=== PATIENT | male | born 1985 | race Caucasian/White ===

== ENCOUNTER 2017-07-10 09:35 | Emergency (ER) | payer OTHER ==
[2017-07-10] MEDS ORDERED: NORCO 5/325 MG PO ONE (09:50)
--- NOTE | 2017-07-10 09:53 | ERPHSYRPT ---
- History of Present Illness Time Seen by Provider: 07/10/17 09:46 Source: patient, family Physician History: CC: fall Hx: 31 y/o patient moved here from [place]. He slipped this AM unloading the car. He has pain in left hand and wrist after injury. No N/T/W. No neck or back pain. No head injury. No other injuries. Pain is severe. He has HTN but does not take his medication. He is allergic to naproxen. Occurred: just prior to arrival Extremities Pain Location: wrist: left Allergies/Adverse Reactions: naproxen [From Naprosyn] Allergy (Verified 07/10/17 09:55) - Review of Systems Constitutional: No Symptoms Respiratory: No Dyspnea Cardiac: No Chest Pain, No Syncope Abdominal/Gastrointestinal: No Abdominal Pain, No Vomiting Musculoskeletal: Injury (left wrist/hand), No Back Pain, No Neck Pain Neurological: No Focal Weakness, No Parasthesia All Other Systems: Reviewed and Negative - Past Medical History Pertinent Past Medical History: Yes (HTN) - Social History Patient Lives Alone: No - Nursing Vital Signs Nursing Vital Signs: Initial Vital Signs Temperature 97.9 F 07/10/17 09:48 Pulse Rate 67 07/10/17 09:48 Respiratory Rate 18 07/10/17 09:48 Blood Pressure 178/91 07/10/17 09:48 O2 Sat by Pulse Oximetry 95 07/10/17 09:48 Pain Scale Pain Intensity 7 - Physical Exam General Appearance: alert, obese Eyes, Ears, Nose, Throat Exam: normal ENT inspection, moist mucous membranes Neck Exam: normal inspection, non-tender, supple Cardiovascular/Respiratory Exam: normal breath sounds, regular rate/rhythm Abdominal Exam: non-tender, soft Shoulder Exam: non-tender, no evidence of injury Elbow/Forearm Exam: non-tender, no evidence of injury Wrist Exam: bone tenderness, pain, No deformity, No ecchymosis Hand Exam: bone tenderness, No deformity, No ecchymosis Neuro/Tendon Exam: normal sensation, normal motor functions Mental Status Exam: alert, oriented x 3, cooperative Skin Exam: warm, dry, No rash - Course Nursing assessment & vital signs reviewed: Yes - Radiology Exams left hand/wrist X-ray Interpretation: Teleradiologist Report, Negative, No Fracture Ordered Tests: Active Orders 24 hr Category Date Time Status Cold Application STAT Care 07/10/17 09:50 Active Splint STAT Care 07/10/17 10:26 Active HAND (MINIMUM 3 VIEWS) Stat Exams 07/10/17 09:50 Completed WRIST (MIN 3 VIEWS) Stat Exams 07/10/17 09:50 Completed Medication Summary Discontinued Medications Generic Name Dose Route Start Last Admin Trade Name Freq PRN Reason Stop Dose Admin Hydrocodone Bitart/Acetaminophen 2 tab 07/10/17 09:50 07/10/17 10:03 [place] 5/325 Mg PO 07/10/17 09:51 2 tab STAT ONE Administration Hydrocodone Bitart/Acetaminophen Confirm 07/10/17 09:57 [place] 5/325 Mg Administered 07/10/17 09:58 Dose 2 tab .ROUTE .[employer] ONE - Progress Progress Note: 07/10/17 10:31 Explained xray. Advised splint and follow up. He can take ibuprofen for pain in past without problems. Counseled pt/family regarding: diagnosis, need for follow-up, rad results - Departure Time of Disposition: 10:31 Departure Disposition: Home Clinical Impression: Left wrist sprain Qualifiers: Encounter type: initial encounter Qualified Code(s): S63.502A - Unspecified sprain of left wrist, initial encounter Condition: Stable Critical Care Time: No Referrals: DOCTOR,NO FAMILY [NON-STAFF PHY W/O PRIVILEGES] - Instructions: Wrist Sprain Additional Instructions: Rx ibuprofen. Splint. Follow up with family doctor if not better in one week. Light duty work. SPRAINS/STRAINS/CONTUSIONS 1. Rest the affected area as much as possible for the next few days. 2. Apply ice to the affected area for 20-30 minutes at a time, several times a day. 3. If you receive an elastic wrap, wear it only while awake for comfort and support. Re-wrap the elastic wrap if it feels too tight or too loose. 4. If swelling is present, elevate the affected part above the level of the heart for at least 2 to 3 days. 5. Use splints, slings, or crutches as instructed. 6. Watch for severe swelling, coldness, numbness, and discoloration of the fingers and toes. See your family physician or return to the emergency department if any of these are noted. Prescriptions: Ibuprofen 600 mg PO Q6H PRN PRN #20 tablet PRN Reason: Pain
[2017-07-10 09:54] VITALS: O2SAT 95
[2017-07-10] MEDS ORDERED: NORCO 5/325 MG ONE (09:57)
--- NOTE | 2017-07-10 10:25 | XRAY ---
Indication: Pain following fall. Comparison: None 3 views of the left wrist demonstrate normal bones, articulation, and soft tissues.
--- NOTE | 2017-07-10 10:27 | XRAY ---
Indication: Pain following fall. Comparison: None 3 views of the left hand demonstrate normal bones, articulation, and soft tissues.
[2017-07-10 11:10] VITALS: BP 166/82; PULSE 78
== END 2017-07-10 10:50 | disposition home or self-care (01) ==
LOC: ED 09:35
DX: S63.502A Unspecified sprain of left wrist, initial encounter (principal); M25.532 Pain in left wrist; M79.642 Pain in left hand; I10 Essential (primary) hypertension; W01.0XXA Fall on same level from slipping, tripping and stumbling without subsequent striking against object, initial encounter
CPT/HCPCS: 73110; 73130; 99283; L3908; A9270-GY

== ENCOUNTER 2017-08-11 18:56 | Emergency (ER) | payer OTHER ==
--- NOTE | 2017-08-11 19:35 | ERPHSYRPT ---
- History of Present Illness Time Seen by Provider: 08/11/17 19:28 Source: patient Exam Limitations: no limitations Patient Subjective Stated Complaint: pt states he has had testicular pain for the last week since working on car and doing lifting. states today he has swelling in his testicles. Triage Nursing Assessment: pt alert and oriented, asnwers questions approp. pt ambultory with steady gait noted. respirations nonlabored with lungs cta. no urine at this time. no swelling or redness noted to testicles. Physician History: 32-year-old white male arrives with complaint of pain in his testicles for one week. He states first she had pain in the right testicle and then he had pain in the left testicle he states this is been going on for one week she initially thought he had a groin strain. Past medical history includes high blood pressure. Patient states he has a history of hydrocele. Timing/Duration: week(s) (1 week) Severity: moderate Modifying Factors: Improves With: ibuprofen Associated Symptoms: other (pain and swelling in testicles), No nausea, No vomiting, No abdominal pain, No shortness of breath, No heartburn, No diaphoresis, No cough, No chills, No chest pain, No fever, No headaches, No loss of appetite, No malaise, No rash, No syncope, No seizure, No weakness Allergies/Adverse Reactions: naproxen [From Naprosyn] Allergy (Verified 07/10/17 09:55) Hx Tetanus, Diphtheria Vaccination/Date Given: Yes (up to date) Hx Influenza Vaccination/Date Given: No Hx Pneumococcal Vaccination/Date Given: No Immunizations Up to Date: Yes - Review of Systems Constitutional: No Fever, No Chills Eyes: No Symptoms Ears, Nose, & Throat: No Symptoms Respiratory: No Cough, No Dyspnea Cardiac: No Chest Pain, No Edema, No Syncope Abdominal/Gastrointestinal: No Abdominal Pain, No Nausea, No Vomiting, No Diarrhea Genitourinary Symptoms: Testicle Pain (pain and swelling testicles) Musculoskeletal: No Back Pain, No Neck Pain Skin: No Rash Neurological: No Dizziness, No Focal Weakness, No Sensory Changes Psychological: No Symptoms Endocrine: No Symptoms All Other Systems: Reviewed and Negative - Past Medical History Pertinent Past Medical History: Yes (HTN) Cardiac History: Hypertension Psycho-Social History: Bipolar, Other Male Reproductive Disorders: Other Other Medical History: hydrocele, schizophrenia. tear to rt achilles tendon - Past Surgical History Past Surgical History: Yes Musculoskeletal: Orthopedic Surgery Other Surgical History: rt knee - Social History Smoking Status: Never smoker Exposure to second hand smoke: No Drug Use: marijuana Patient Lives Alone: No - Nursing Vital Signs Nursing Vital Signs: Initial Vital Signs Temperature 98.4 F 08/11/17 19:06 Pulse Rate 80 08/11/17 19:06 Respiratory Rate 20 08/11/17 19:06 Blood Pressure 191/90 08/11/17 19:06 O2 Sat by Pulse Oximetry 97 08/11/17 19:06 Pain Scale Pain Intensity 4 - Physical Exam General Appearance: mild distress Eye Exam: PERRL/EOMI, eyes nml inspection Ears, Nose, Throat Exam: normal ENT inspection, TMs normal, pharynx normal, moist mucous membranes Neck Exam: normal inspection, non-tender, supple, full range of motion Respiratory Exam: normal breath sounds, lungs clear, No respiratory distress Cardiovascular Exam: regular rate/rhythm, normal heart sounds, normal peripheral pulses Gastrointestinal/Abdomen Exam: soft, normal bowel sounds, No tenderness, No mass Male Genitalia Exam: testicular tenderness (both testicles tender with palpation ), No hernia Back Exam: normal inspection, normal range of motion, No CVA tenderness, No vertebral tenderness Extremity Exam: normal inspection, normal range of motion, pelvis stable Neurologic Exam: alert, oriented x 3, cooperative, normal mood/affect, nml cerebellar function, nml station & gait, sensation nml, No motor deficits Skin Exam: normal color, warm, dry, No rash Lymphatic Exam: No adenopathy SpO2 Interpretation: normal (97%) SpO2: 97 Oxygen Delivery: Room Air - Course Nursing assessment & vital signs reviewed: Yes - Radiology Ultrasound Exam Scrotal Ultrasound: Other (discussed with biochemistry technologist: testicular ultrasound , mild bilateral hydrocele, left orchitis and epididymitis (severe)) Ordered Tests: Active Orders 24 hr Category Date Time Status TESTICLE [US] Stat Exams 08/11/17 Ordered BMP Stat Lab 08/11/17 19:50 Completed CBC W DIFF Stat Lab 08/11/17 19:50 Completed UA W/RFX UR CULTURE Stat Lab 08/11/17 19:50 Completed Medication Summary Discontinued Medications Generic Name Dose Route Start Last Admin Trade Name Freq PRN Reason Stop Dose Admin Ceftriaxone Sodium 1,000 mg 08/11/17 20:45 Rocephin 1000 Mg Inj IM 08/11/17 20:46 STAT ONE Doxycycline Hyclate 100 mg 08/11/17 20:45 Vibramycin 100 Mg PO 08/11/17 20:46 STAT ONE Lab/Rad Data: Laboratory Result [facility] 08/11/17 19:50 08/11/17 19:50 Laboratory Results 08/11/17 08/11/17 08/11/17 Range/Units 19:50 19:50 19:50 WBC 6.6 (4.0-10.5) K/mm3 RBC 4.53 (4.1-5.6) M/mm3 Hgb 13.4 (12.5-18.0) gm/dl Hct 40.8 L (42-50) % MCV 90.1 (78-100) fl MCH 29.6 (26-32) pg MCHC 32.8 (32-36) g/dl RDW 13.5 (11.5-14.0) % Plt Count 176 (150-450) K/mm3 MPV 11.2 H (6-9.5) fl Gran % 58.2 (36.0-66.0) % Lymphocytes % 31.1 (24.0-44.0) % Monocytes % 8.1 (0.0-12.0) % Eosinophils % 2.3 (0.00-5.0) % Basophils % 0.3 (0.0-0.4) % Basophils # 0.02 (0-0.4) Sodium 139 (136-145) mEq/L Potassium 4.0 (3.5-5.1) mEq/L Chloride 105 (98-107) mEq/L Carbon Dioxide 26.1 (21-32) mEq/L Anion Gap 12.1 (5-15) MEQ/L BUN 11 (9-20) mg/dL Creatinine 0.87 (0.55-1.30) mg/dl Estimated GFR > 60 ML/MIN Glucose 151 H (70-110) MG/DL Calcium 8.7 (8.5-10.1) mg/dL Ur Collection Type CLEAN CATCH Urine Color YELLOW (YELLOW) Urine Appearance CLEAR (CLEAR) Urine pH 6.0 (5-6) Ur Specific [place] 1.010 (1.005-1.025) Urine Protein NEGATIVE (Negative) Urine Ketones NEGATIVE (NEGATIVE) Urine Blood NEGATIVE (0-5) [place]/ul Urine Nitrite NEGATIVE (NEGATIVE) Urine Bilirubin NEGATIVE (NEGATIVE) Urine Urobilinogen NORMAL (0-1) mg/dL Ur Leukocyte Esterase NEGATIVE (NEGATIVE) Urine Culture Reflexed NO (NO) Urine Glucose NEGATIVE (NEGATIVE) mg/dL Specimen Received 08/11/171954 - Progress Progress: improved Progress Note: 08/11/17 20:47 This is a 32-year-old white male who complains of low bilateral scrotal pain patient does have a history of epididymitis states she's been having the pain over a week patient's ultrasound is remarkable for bilateral hydrocele which are mild and left orchitis, left epididymitis, severe Will give patient Rocephin 1 g IM, plan doxycycline [place] patient will need to follow-up with his family doctor. - Departure Time of Disposition: 20:48 Departure Disposition: Home Clinical Impression: Epididymitis, Orchitis, Testicular pain, Bilateral hydrocele Condition: Fair Critical Care Time: No Referrals: TAMAR WADE [Primary Care Provider] - Additional Instructions: Return home. Cold packs to area 24-48 hours. Doxycycline 100 mg orally twice a day for 10 days. [place] 5/325 #12 one orally every 4-6 hours as needed for pain. Follow-up with Dr. Wade call Sunday for appointment sooner if problems. Return for acute distress or for severe symptoms. Prescriptions: Doxycycline Hyclate 100 mg [Vibramycin 100 MG] 100 mg PO BID #20 tab Hydrocodone/Acetaminophen [[place] 5-325 Tablet] 1 tab PO Q4-6HPRN PRN #12 tablet PRN Reason: Pain
[2017-08-11 19:58] LABS: BASOPHIL % 0.3 % (0.0-0.4); Eosinophil % 2.3 % (0.00-5.0); Granulocytes % 58.2 % (36.0-66.0); Lymphocytes % 31.1 % (24.0-44.0); Mean Cell Volume 90.1 fl (78-100); Mean Corpuscular Hemoglobin 29.6 pg (26-32); Mean Platelet Volume 11.2 fl (6-9.5); Monocytes % 8.1 % (0.0-12.0); Platelet Count 176 K/mm3 (150-450); Red Blood Count 4.53 M/mm3 (4.1-5.6); Red Cell Distribution Width 13.5 % (11.5-14.0); White Blood Count 6.6 K/mm3 (4.0-10.5)
[2017-08-11 20:09] LABS: ADD URINE CULTURE? NO (NO); Bilirubin NEGATIVE (NEGATIVE); Blood NEGATIVE Ery/ul (0-5); COMPLETE URINE MICROSCOPIC? NO; Collection Type CLEAN CATCH; Glucose NEGATIVE (NEGATIVE); Leukocyte Esterase NEGATIVE (NEGATIVE)
[2017-08-11 20:12] LABS: ANION GAP 12.1 MEQ/L (5-15); BLOOD UREA NITROGEN 11 mg/dL (9-20); CHLORIDE 105 mEq/L (98-107); Carbon Dioxide 26.1 mEq/L (21-32); Glucose 151 MG/DL (70-110); SODIUM 139 mEq/L (136-145)
[2017-08-11] MEDS ORDERED: Vibramycin 100 MG PO ONE (20:45)
[2017-08-11] MEDS ORDERED: Rocephin 1000 MG INJ IM ONE (20:45)
[2017-08-11] MEDS ORDERED: Vibramycin 100 MG ONE (20:53)
[2017-08-11] MEDS ORDERED: XYLOCAINE 1% HCL 20 ML MDV ONE (20:53)
[2017-08-11] MEDS ORDERED: Rocephin 1000 MG INJ ONE (20:53)
[2017-08-11] MEDS ORDERED: NORCO 5/325 MG PO ONE (20:55)
[2017-08-11] MEDS ORDERED: NORCO 5/325 MG ONE (21:04)
[2017-08-11 21:17] VITALS: BP 139/75; PULSE 81; O2SAT 100
--- NOTE | 2017-08-12 08:41 | XRAY ---
Indication: Pain, left greater than right. Two-dimensional testicle sonogram performed. Comparison: None Right testicle measures 3.7 x 2.2 x 3.0 cm and the left measures 4.5 x 2.9 x 3.4 cm. Normal right testicle color Doppler flow and normal epididymis. Left testicle and epididymis appears edematous with hyperemic color Doppler flow favoring orchitis with epididymitis. Small left-sided reactive hydrocele. No suspicious extratesticular mass. Impression: Sonographic features favoring left-sided orchitis with epididymitis and small hydrocele. Right testicle sonogram is negative. Comment: Preliminary report was given.
== END 2017-08-11 21:17 | disposition home or self-care (01) ==
LOC: ED 18:56
DX: N45.1 Epididymitis (principal); N45.2 Orchitis; N50.812 Left testicular pain; N50.811 Right testicular pain; N43.3 Hydrocele, unspecified
CPT/HCPCS: 36415; 76870; 80048; 81002; 85025; 96372; 99284; J0696; A9270-GY

== ENCOUNTER 2017-09-08 05:14 | Emergency (ER) | payer SELFPAY ==
[2017-09-08 05:34] VITALS: O2SAT 97
[2017-09-08] MEDS ORDERED: Sodium Chloride 0.9% 1000 ML 1,000 ML IV STA (05:51)
[2017-09-08] MEDS ORDERED: Zofran 4 MG/2 ML VIAL IV ONE (05:51)
--- NOTE | 2017-09-08 06:02 | ERPHSYRPT ---
- History of Present Illness Source: patient Exam Limitations: no limitations Patient Subjective Stated Complaint: Pt c/o generalized body pain for appx 2 weeks. Headache, nausea, and vomiting began upon awakening this morning 09/08/17. Triage Nursing Assessment: Pt alert and oriented. Skin pale, cool, and clammy. Lung sounds clear. Hyperactive bowel sounds x 4 quadrants. Timing/Duration: week(s) (2) Severity: moderate Modifying Factors: Improves With: nothing Associated Symptoms: nausea, vomiting, cough, headaches, loss of appetite, malaise Hx Tetanus, Diphtheria Vaccination/Date Given: Yes Hx Influenza Vaccination/Date Given: No Hx Pneumococcal Vaccination/Date Given: No Immunizations Up to Date: No <HE MORALES - Last Filed: 09/08/17 07:04> <KELLIE GREEN - Last Filed: 09/08/17 08:14> - History of Present Illness Time Seen by Provider: 09/08/17 05:50 Physician History: Pt has been c/o gen. body aches and pain x 2 weeks, headaches, and cough, started vomiting tonight, vomited x2, took a Motrin, but unable to keep it. He denies vomiting blood or coffee ground material, no diarrhea, or severe abdominal pain, chest pain or SOB, other complaints. (HE MORALES) Allergies/Adverse Reactions: meloxicam Allergy (Verified 09/08/17 06:47) naproxen [From Naprosyn] Allergy (Verified 07/10/17 09:55) Home Medications: Lisinopril 20 mg [Zestril 20 MG] 20 mg PO DAILY 09/08/17 [History] - Review of Systems Constitutional: Chills Respiratory: Cough Abdominal/Gastrointestinal: Nausea, Vomiting Musculoskeletal: Myalgias Neurological: Headache All Other Systems: Reviewed and Negative <HE MORALES - Last Filed: 09/08/17 07:04> - Past Medical History Pertinent Past Medical History: Yes (HTN) Cardiac History: Hypertension Psycho-Social History: Bipolar, Other Male Reproductive Disorders: Other Other Medical History: hydrocele, schizophrenia. tear to rt achilles tendon - Past Surgical History Past Surgical History: Yes Musculoskeletal: Orthopedic Surgery Other Surgical History: rt knee - Social History Smoking Status: Never smoker Exposure to second hand smoke: Yes Drug Use: marijuana Patient Lives Alone: No <HE MORALES Filed: 09/08/17 07:04> - Physical Exam General Appearance: no apparent distress Eye Exam: eyes nml inspection Ears, Nose, Throat Exam: normal ENT inspection, TMs normal, pharynx normal, moist mucous membranes Neck Exam: normal inspection, non-tender, supple, No JVD Respiratory Exam: normal breath sounds, lungs clear, airway intact Cardiovascular Exam: regular rate/rhythm, normal heart sounds, normal peripheral pulses, No murmur Gastrointestinal/Abdomen Exam: soft, normal bowel sounds, No tenderness, No distention, No mass, No guarding Back Exam: normal inspection, No CVA tenderness Extremity Exam: normal inspection, No calf tenderness Neurologic Exam: alert, oriented x 3, cooperative, normal mood/affect Skin Exam: normal color, warm, dry, No rash Lymphatic Exam: No adenopathy SpO2: 97 Oxygen Delivery: Room Air <HE MORALES Filed: 09/08/17 07:04> - Nursing Vital Signs Nursing Vital Signs: Initial Vital Signs Temperature 97.7 F 09/08/17 05:14 Pulse Rate 62 09/08/17 05:14 Respiratory Rate 24 09/08/17 05:14 Blood Pressure 178/96 09/08/17 05:14 O2 Sat by Pulse Oximetry 97 09/08/17 05:14 Pain Scale Pain Intensity 0 - Radiology Exams Chest X-ray Interpretation: Interpreted by me, Nml Heart Size, No Infiltrates, Nml Mediastinum <HE MORALES Filed: 09/08/17 07:04> Ordered Tests: Active Orders 24 hr Category Date Time Status EKG-ER Only STAT Care 09/08/17 06:48 Active CHEST 2 VIEWS (PA AND LAT) Stat Exams 09/08/17 Taken CBC W DIFF Stat Lab 09/08/17 06:05 Completed CMP Stat Lab 09/08/17 06:05 Completed CULTURE, THROAT Stat Lab 09/08/17 05:52 Received Lactic Acid Urgent Lab 09/08/17 06:16 Completed STREP SCREEN-BETA A Stat Lab 09/08/17 05:52 Completed TROPONIN Q3H Lab 09/08/17 06:00 Completed TROPONIN Q3H Lab 09/08/17 10:00 Ordered TROPONIN Q3H Lab 09/08/17 13:00 Ordered TROPONIN Q3H Lab 09/08/17 16:00 Ordered TROPONIN Q3H Lab 09/08/17 19:00 Ordered TROPONIN Q3H Lab 09/08/17 22:00 Ordered UA W/RFX UR CULTURE Stat Lab 09/08/17 07:17 Completed Medication Summary Discontinued Medications Generic Name Dose Route Start Last Admin Trade Name Jenni PRN Reason Stop Dose Admin Acetaminophen 1,000 mg 09/08/17 06:15 09/08/17 06:38 Tylenol Extra Strength 500 Mg PO 09/08/17 06:16 1,000 mg NOW ONE Administration Acetaminophen Confirm 09/08/17 06:38 Tylenol Extra Strength 500 Mg Administered 09/08/17 06:39 Dose 1,000 mg .ROUTE .STK-MED ONE Sodium Chloride 1,000 mls @ 999 mls/hr 09/08/17 05:51 09/08/17 06:39 Sodium Chloride 0.9% 1000 Ml IV 09/08/17 06:51 999 mls/hr .Q1H1M STA Administration Sodium Chloride Confirm 09/08/17 06:14 Sodium Chloride 0.9% 1000 Ml Administered 09/08/17 06:15 Dose 1,000 mls @ ud .ROUTE .[facility]K-[employer] ONE Ondansetron HCl 4 mg 09/08/17 05:51 09/08/17 06:39 Zofran 4 Mg/2 Ml Vial IV 09/08/17 05:52 4 mg STAT ONE Administration Ondansetron HCl Confirm 09/08/17 06:14 Zofran 4 Mg/2 Ml Vial Administered 09/08/17 06:15 Dose 4 mg .ROUTE .STK-MED ONE Lab/Rad Data: Laboratory Result Diagrams 09/08/17 06:05 09/08/17 06:05 Laboratory Results 09/08/17 09/08/17 09/08/17 Range/Units 07:17 06:16 06:05 WBC (4.0-10.5) K/mm3 RBC (4.1-5.6) M/mm3 Hgb (12.5-18.0) gm/dl Hct (42-50) % MCV (78-100) fl MCH (26-32) pg MCHC (32-36) g/dl RDW (11.5-14.0) % Plt Count (150-450) K/mm3 MPV (6-9.5) fl Gran % (36.0-66.0) % Lymphocytes % (24.0-44.0) % Monocytes % (0.0-12.0) % Eosinophils % (0.00-5.0) % Basophils % (0.0-0.4) % Basophils # (0-0.4) Sodium (136-145) mEq/L Potassium (3.5-5.1) mEq/L Chloride (98-107) mEq/L Carbon Dioxide (21-32) mEq/L Anion Gap (5-15) MEQ/L BUN (9-20) mg/dL Creatinine (0.55-1.30) mg/dl Estimated GFR ML/MIN Glucose (70-110) MG/DL Lactic Acid 1.4 (0.4-2.0) Calcium (8.5-10.1) mg/dL Total Bilirubin (0.2-1.0) mg/dL AST (15-37) U/L ALT (12-78) U/L Alkaline Phosphatase (46-116) U/L Troponin I (0.000-0.056) ng/ml Serum Total Protein (6.4-8.2) gm/dL Albumin (3.4-5.0) g/dL Ur Collection Type CLEAN CATCH Urine Color YELLOW (YELLOW) Urine Appearance CLEAR (CLEAR) Urine pH 7.0 (5-6) Ur Specific [place] 1.015 (1.005-1.025) Urine Protein NEGATIVE (Negative) Urine Ketones NEGATIVE (NEGATIVE) Urine Blood NEGATIVE (0-5) [place]et[place]/ul Urine Nitrite NEGATIVE (NEGATIVE) Urine Bilirubin NEGATIVE (NEGATIVE) Urine Urobilinogen NORMAL (0-1) mg/dL Ur Leukocyte Esterase NEGATIVE (NEGATIVE) Urine Culture Reflexed NO (NO) Urine Glucose NEGATIVE (NEGATIVE) mg/dL Influenza Type A Ag NEGATIVE (NEGATIVE) Influenza Type B Ag NEGATIVE (NEGATIVE) RSV (PCR) NEGATIVE (Negative) Streptococcus Screen (Negative) Specimen Received 09-0809/08/17 09/08/17 09/08/17 Range/Units 06:05 06:05 06:00 WBC 5.0 (4.0-10.5) K/mm3 RBC 4.46 (4.1-5.6) M/mm3 Hgb 13.2 (12.5-18.0) gm/dl Hct 40.1 L (42-50) % MCV 89.9 (78-100) fl MCH 29.6 (26-32) pg MCHC 32.9 (32-36) g/dl RDW 13.4 (11.5-14.0) % Plt Count 144 L (150-450) K/mm3 MPV 11.5 H (6-9.5) fl Gran % 55.4 (36.0-66.0) % Lymphocytes % 34.5 (24.0-44.0) % Monocytes % 6.9 (0.0-12.0) % Eosinophils % 2.8 (0.00-5.0) % Basophils % 0.4 (0.0-0.4) % Basophils # 0.02 (0-0.4) Sodium 141 (136-145) mEq/L Potassium 3.9 (3.5-5.1) mEq/L Chloride 106 (98-107) mEq/L Carbon Dioxide 27.4 (21-32) mEq/L Anion Gap 11.3 (5-15) MEQ/L BUN 13 (9-20) mg/dL Creatinine 0.81 (0.55-1.30) mg/dl Estimated GFR > 60 ML/MIN Glucose 141 H (70-110) MG/DL Lactic Acid (0.4-2.0) Calcium 8.5 (8.5-10.1) mg/dL Total Bilirubin 0.40 (0.2-1.0) mg/dL AST 33 (15-37) U/L ALT 69 (12-78) U/L Alkaline Phosphatase 64 (46-116) U/L Troponin I < 0.017 (0.000-0.056) ng/ml Serum Total Protein 6.6 (6.4-8.2) gm/dL Albumin 3.3 L (3.4-5.0) g/dL Ur Collection Type Urine Color (YELLOW) Urine Appearance (CLEAR) Urine pH (5-6) Ur Specific [place] (1.005-1.025) Urine Protein (Negative) Urine Ketones (NEGATIVE) Urine Blood (0-5) [place]/ul Urine Nitrite (NEGATIVE) Urine Bilirubin (NEGATIVE) Urine Urobilinogen (0-1) mg/dL Ur Leukocyte Esterase (NEGATIVE) Urine Culture Reflexed (NO) Urine Glucose (NEGATIVE) mg/dL Influenza Type A Ag (NEGATIVE) Influenza Type B Ag (NEGATIVE) RSV (PCR) (Negative) Streptococcus Screen (Negative) Specimen Received 09/08/17 Range/Units 05:52 WBC (4.0-10.5) K/mm3 RBC (4.1-5.6) M/mm3 Hgb (12.5-18.0) gm/dl Hct (42-50) % MCV (78-100) fl MCH (26-32) pg MCHC (32-36) g/dl RDW (11.5-14.0) % Plt Count (150-450) K/mm3 MPV (6-9.5) fl Gran % (36.0-66.0) % Lymphocytes % (24.0-44.0) % Monocytes % (0.0-12.0) % Eosinophils % (0.00-5.0) % Basophils % (0.0-0.4) % Basophils # (0-0.4) Sodium (136-145) mEq/L Potassium (3.5-5.1) mEq/L Chloride (98-107) mEq/L Carbon Dioxide (21-32) mEq/L Anion Gap (5-15) MEQ/L BUN (9-20) mg/dL Creatinine (0.55-1.30) mg/dl Estimated GFR ML/MIN Glucose (70-110) MG/DL Lactic Acid (0.4-2.0) Calcium (8.5-10.1) mg/dL Total Bilirubin (0.2-1.0) mg/dL AST (15-37) U/L ALT (12-78) U/L Alkaline Phosphatase (46-116) U/L Troponin I (0.000-0.056) ng/ml Serum Total Protein (6.4-8.2) gm/dL Albumin (3.4-5.0) g/dL Ur Collection Type Urine Color (YELLOW) Urine Appearance (CLEAR) Urine pH (5-6) Ur Specific [place] (1.005-1.025) Urine Protein (Negative) Urine Ketones (NEGATIVE) Urine Blood (0-5) [place]/ul Urine Nitrite (NEGATIVE) Urine Bilirubin (NEGATIVE) Urine Urobilinogen (0-1) mg/dL Ur Leukocyte Esterase (NEGATIVE) Urine Culture Reflexed (NO) Urine Glucose (NEGATIVE) mg/dL Influenza Type A Ag (NEGATIVE) Influenza Type B Ag (NEGATIVE) RSV (PCR) (Negative) Streptococcus Screen NEGATIVE (Negative) Specimen Received - Departure Time of Disposition: 07:05 Departure Disposition: Home Critical Care Time: No <HE MORALES - Last Filed: 09/08/17 07:04> - Departure Time of Disposition: 08:10 <KELLIE GREEN - Last Filed: 09/08/17 08:14> - Departure Clinical Impression: VIRAL SYNDROME, ACUTE BRONCHITIS Vomiting Qualifiers: Vomiting type: unspecified Vomiting Intractability: non-intractable Nausea presence: with nausea Qualified Code(s): R11.2 - Nausea with vomiting, unspecified Condition: Stable Referrals: TAMAR OWENS [Primary Care Provider] - Additional Instructions: DRINK PLENTY OF FLUIDS. ANTIBIOTIC ZITHROMAX 250MG, 2 TABLETS DAY 1 THEN 1 TABLET DAYS 2-5. ZOFRAN 4MG EVERY 4 HOURS FOR NAUSEA OR VOMITING. CONTINUE LISINOPRIL 20MG DAILY. CONSULT YOUR PRIMARY CARE PROVIDER FOR EVALUATION . Prescriptions: Ondansetron [Zofran Odt] 4 mg PO Q4H PRN PRN #6 tab.rapdis PRN Reason: Nausea Azithromycin 250 mg [Zithromax 250 MG TABLET] 250 mg PO ZPACK #6 tablet Lisinopril 20 mg [Zestril 20 MG] 20 mg PO DAILY #30 tablet
[2017-09-08] MEDS ORDERED: Zofran 4 MG/2 ML VIAL ONE (06:14)
[2017-09-08] MEDS ORDERED: Sodium Chloride 0.9% 1000 ML 1,000 ML ONE (06:14)
[2017-09-08] MEDS ORDERED: TYLENOL EXTRA STRENGTH 500 MG PO ONE (06:15)
[2017-09-08 06:18] LABS: BASOPHIL % 0.4 % (0.0-0.4); Eosinophil % 2.8 % (0.00-5.0); Granulocytes % 55.4 % (36.0-66.0); Lymphocytes % 34.5 % (24.0-44.0); Mean Cell Volume 89.9 fl (78-100); Mean Corpuscular Hemoglobin 29.6 pg (26-32); Mean Platelet Volume 11.5 fl (6-9.5); Monocytes % 6.9 % (0.0-12.0); Platelet Count 144 K/mm3 (150-450); Red Blood Count 4.46 M/mm3 (4.1-5.6); Red Cell Distribution Width 13.4 % (11.5-14.0)
[2017-09-08] MEDS ORDERED: TYLENOL EXTRA STRENGTH 500 MG ONE (06:38)
[2017-09-08 06:57] LABS: ALBUMIN 3.3 g/dL (3.4-5.0); ALKALINE PHOSPHATASE 64 U/L (46-116); ANION GAP 11.3 MEQ/L (5-15); BLOOD UREA NITROGEN 13 mg/dL (9-20); CHLORIDE 106 mEq/L (98-107); Carbon Dioxide 27.4 mEq/L (21-32); Glucose 141 MG/DL (70-110); Potassium 3.9 mEq/L (3.5-5.1); SGOT/AST 33 U/L (15-37); SGPT/ALT 69 U/L (12-78); SODIUM 141 mEq/L (136-145); Total Protein 6.6 gm/dL (6.4-8.2)
[2017-09-08 07:17] LABS: ADD URINE CULTURE? NO (NO); Bilirubin NEGATIVE (NEGATIVE); Blood NEGATIVE Ery/ul (0-5); COMPLETE URINE MICROSCOPIC? NO; Collection Type CLEAN CATCH; Glucose NEGATIVE (NEGATIVE); Leukocyte Esterase NEGATIVE (NEGATIVE)
[2017-09-08 07:45] VITALS: BP 181/114; PULSE 70
--- NOTE | 2017-09-08 11:33 | XRAY ---
Indication: Cough. Emesis. Comparison: None PA/lateral chest obtained. Lateral view limited by respiration artifact. No focal infiltrate, consolidation, or large effusion. Heart is not enlarged. Bony thorax intact with mild scoliosis. Impression: Nonacute limited chest.
== END 2017-09-08 08:20 | disposition home or self-care (01) ==
LOC: ED 05:14
DX: R11.2 Nausea with vomiting, unspecified (principal); B34.9 Viral infection, unspecified; J20.9 Acute bronchitis, unspecified; R51 Headache; R05 Cough; I10 Essential (primary) hypertension
CPT/HCPCS: 36000; 36415; 71020; 80053; 81002; 83605; 84484; 85025; 87070; 87430; 87631; 96360; 99284; J2405; A9270-GY

== ENCOUNTER 2017-09-28 10:48 | Emergency (ER) | payer SELFPAY ==
[2017-09-28 10:59] VITALS: O2SAT 95
--- NOTE | 2017-09-28 11:08 | ERPHSYRPT ---
- History of Present Illness Time Seen by Provider: 09/28/17 11:02 Source: patient Exam Limitations: no limitations Patient Subjective Stated Complaint: pt states he has been sick with a cough and cold for the past 1 week. Triage Nursing Assessment: pt pink, warm, dry. afebrile. lung sounds clear and equal. Physician History: The patient is a 32-year-old morbidly obese male accompanied by his significant other complaining of a cough for one week. His throat was hurting this morning that he took ibuprofen and now it is better. His girlfriend had influenza A last week. He also had a fever for one day last week. He did not receive his influenza vaccination this year. His past medical history is significant for hypertension. Timing/Duration: week(s) (1) Cough Quality/Degree: severe, dry cough Possible Cause: no prior episodes Modifying Factors: Improves With: coughing Associated Symptoms: fever, cough, sore throat Allergies/Adverse Reactions: meloxicam Allergy (Verified 09/28/17 10:59) naproxen [From Naprosyn] Allergy (Verified 09/28/17 10:59) Hx Tetanus, Diphtheria Vaccination/Date Given: Yes (up to date) Hx Influenza Vaccination/Date Given: No Hx Pneumococcal Vaccination/Date Given: No Immunizations Up to Date: Yes - Review of Systems Constitutional: Fever Ears, Nose, & Throat: Ear Pain, Nose Congestion, Throat Pain, Hoarse Respiratory: Cough Cardiac: No Chest Pain, No Edema, No Syncope Abdominal/Gastrointestinal: No Abdominal Pain, No Nausea, No Vomiting, No Diarrhea Genitourinary Symptoms: No Dysuria Musculoskeletal: No Symptoms Skin: No Rash Neurological: No Dizziness, No Focal Weakness, No Sensory Changes Psychological: No Symptoms Endocrine: No Symptoms Hematologic/Lymphatic: No Symptoms Immunological/Allergic: No Symptoms All Other Systems: Reviewed and Negative - Past Medical History Pertinent Past Medical History: Yes Cardiac History: Hypertension Psycho-Social History: Bipolar, Depression, Other Male Reproductive Disorders: Other Other Medical History: hydrocele, schizophrenia. tear to rt achilles tendon - Past Surgical History Past Surgical History: Yes Musculoskeletal: Orthopedic Surgery Other Surgical History: rt knee - Social History Smoking Status: Never smoker Exposure to second hand smoke: No Drug Use: marijuana Patient Lives Alone: No - Nursing Vital Signs Nursing Vital Signs: Initial Vital Signs Temperature 98.2 F 09/28/17 10:55 Pulse Rate 73 09/28/17 10:55 Respiratory Rate 20 09/28/17 10:55 Blood Pressure 148/76 09/28/17 10:55 O2 Sat by Pulse Oximetry 95 09/28/17 10:55 Pain Scale Pain Intensity 0 - Physical Exam General Appearance: no apparent distress, alert Eye Exam: PERRL/EOMI, eyes nml inspection Ears, Nose, Throat Exam: normal ENT inspection, TMs normal, pharynx normal, moist mucous membranes, No pharyngeal erythema Neck Exam: normal inspection, non-tender, supple, full range of motion Respiratory Exam: normal breath sounds, lungs clear, No respiratory distress Cardiovascular Exam: regular rate/rhythm, normal heart sounds Gastrointestinal/Abdomen Exam: soft, other (obese), No tenderness Rectal Exam: not done Back Exam: normal inspection, No CVA tenderness, No vertebral tenderness Extremity Exam: normal inspection, normal range of motion Neurologic Exam: alert, oriented x 3, cooperative, normal mood/affect, sensation nml, No motor deficits Skin Exam: normal color, warm, dry, No rash Lymphatic Exam: No adenopathy SpO2 Interpretation: normal SpO2: 95 Oxygen Delivery: Room Air - Radiology Exams Chest X-ray Interpretation: Reviewed by me, Negative (Per DR Mcqueen.) Ordered Tests: Active Orders 24 hr Category Date Time Status CHEST 2 VIEWS (PA AND LAT) Stat Exams 09/28/17 11:10 Completed STREP SCREEN-BETA A Stat Lab 09/28/17 12:00 Received Lab/Rad Data: Laboratory Results 09/28/17 Range/Units 12:00 Influenza Type A Ag NEGATIVE (NEGATIVE) Influenza Type B Ag NEGATIVE (NEGATIVE) RSV (PCR) SEE SEPARATE REPORT (Negative) - Departure Time of Disposition: 12:32 Departure Disposition: Home Clinical Impression: Bronchitis, Laryngitis Condition: Stable Critical Care Time: No Referrals: TAMAR OWENS [Primary Care Provider] - Additional Instructions: You have bronchitis and laryngitis. Take Tylenol and ibuprofen as needed for comfort. For sore throat gargle with warm salt water as needed. Follow-up as needed.
--- NOTE | 2017-09-28 11:39 | XRAY ---
Indication: Cough and flu symptoms 1 week. Comparison: September 08, 2017. PA/lateral chest again demonstrates normal heart and lungs. No new/acute findings.
[2017-09-28 12:14] LABS: INFLUENZA A NEGATIVE (NEGATIVE); INFLUENZA B NEGATIVE (NEGATIVE)
[2017-09-28 12:15] LABS: RESPIRATORY SYNCTIAL VIRUS SEE SEPARATE REPORT (Negative)
[2017-09-28 12:29] VITALS: BP 143/77; PULSE 72
== END 2017-09-28 12:41 | disposition home or self-care (01) ==
LOC: ED 10:48
DX: J40 Bronchitis, not specified as acute or chronic (principal); J04.0 Acute laryngitis
CPT/HCPCS: 71020; 87070; 87430; 87631; 99283